=== PATIENT | male | born 1965 | race Caucasian/White ===

== ENCOUNTER 2021-03-04 10:23 | Emergency (ER) | payer SELFPAY ==
[~2021-03-04] VITALS: Ht 177.8 cm; Wt 108.9 kg
--- NOTE | 2021-03-04 10:30 | NUR ---
BIB [facility] FOR WORSENING CHRONIC BACK PAIN. RATES PAIN 5/10. IN ROOM AIR AND DENIES SOB. RESPIRATION REGULAR AND UNLABORED. WILL CONTINUE TO MONITOR THE PATIENT.
[2021-03-04 10:32] VITALS: BP 146/72
--- NOTE | 2021-03-04 11:03 | NUR ---
The patient alert and oriented x4. Denies pain. Breathing even and unlabored. Patient discharged to home in stable condition. Written and verbal after care instructions given. Patient verbalizes understanding of instruction.
== END 2021-03-04 11:01 | disposition home or self-care (01) ==
LOC: ER 10:27
DX: G89.29 Other chronic pain (principal); M54.9 Dorsalgia, unspecified; F43.10 Post-traumatic stress disorder, unspecified; Z91.018 Allergy to other foods; Z88.8 Allergy status to other drugs, medicaments and biological substances

== ENCOUNTER 2021-06-18 03:19 | Emergency (ER) | payer MEDICAID ==
[~2021-06-18] VITALS: Ht 172.7 cm; Wt 136.1 kg
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
--- NOTE | 2021-06-18 03:43 | NUR ---
URINE COLLECTED AND SENT TO LAB
--- NOTE | 2021-06-18 03:45 | NUR ---
[employer] AT PT'S BEDSIDE
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
--- NOTE | 2021-06-18 04:29 | NUR ---
[employer] AT PT'S BEDSIDE. COVID ANTIGEN SWAB COLLECTED AND SENT TO LAB
[2021-06-18 05:05] LABS: BASOPHILS % (AUTO) 0.4 % (0.0-2.0); EOSINOPHILS % (AUTO) 1.5 % (0.0-6.0); HEMATOCRIT 36 % (39-51); HEMOGLOBIN 11.8 g/dL (13.5-17.5); LYMPHOCYTES # (AUTO) 2.3 K/uL (0.8-4.8); LYMPHOCYTES % (AUTO) 27.3 % (20.0-44.0); MEAN CORPUSCULAR HGB CONC 33 g/dl (31.0-36.0); MEAN CORPUSCULAR VOLUME 82 fL (80-96); MONOCYTES # (AUTO) 0.5 K/uL (0.1-1.30); MONOCYTES % (AUTO) 5.8 % (2.0-12.0); NEUTROPHILS # (AUTO) 5.5 K/uL (1.8-8.9); PLATELET COUNT (AUTO) 308 K/uL (150-450); RED BLOOD CELL COUNT(AUTO) 4.43 MIL/uL (4.5-6.0); WHITE BLOOD COUNT (AUTO) 8.5 K/uL (4.3-11.0)
[2021-06-18 05:37] LABS: ALANINE AMINOTRANSFERASE 32 U/L (12-78); ALCOHOL, BLOOD < 3 mg/dL (0-0); ALKALINE PHOSPHATASE 74 U/L (46-116); ASPARTATE AMINOTRANSFERASE 12 U/L (15-37); BILIRUBIN,DIRECT 0.1 mg/dL (0.0-0.2); BILIRUBIN,TOTAL 0.2 mg/dL (0.2-1.0); CALCIUM, SERUM 8.6 mg/dL (8.5-10.1); CARBON DIOXIDE 31 mmol/L (21-32); CHLORIDE 99 mmol/L (98-107); CREATININE 0.8 mg/dL (0.6-1.3); GLUCOSE 323 mg/dL (74-106); POTASSIUM 4.1 mmol/L (3.5-5.1); SODIUM SERUM 135 mmol/L (136-145); TOTAL PROTEIN, SERUM 7.4 g/dL (6.4-8.2); UREA NITROGEN, BLOOD 9 mg/dL (7-18)
[2021-06-18 05:40] LABS: ACETAMINOPHEN 0 ug/ml (10-30)
[2021-06-18 06:00] LABS: BILIRUBIN,URINE NEGATIVE (NEGATIVE); COLOR,URINE YELLOW (YELLOW); LEUKOCYTE ESTERASE ,URINE NEGATIVE (NEGATIVE); NITRITE, URINE NEGATIVE (NEGATIVE); PH,URINE 5.5 (5.0-8.0); PROTEIN,URINE NEGATIVE (NEGATIVE); UGLUCOSE >=1000 mg/dL (NEGATIVE); UROBILINOGEN,URINE 0.2 EU/dL (0.2)
[2021-06-18 06:20] LABS: BACTERIA,URINE Few /HPF (None Seen); RBC,URINE 0-2 /HPF (0-2); SQUAMOUS EPITHELIAL CELL,UR Few /HPF (None Seen); WBC,URINE 0-2 /HPF (0-3)
--- NOTE | 2021-06-18 08:00 | NUR ---
BREAKFAST TRAY PROVIDED, TOLERATING PO WELL
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
[2021-06-18] MEDS ORDERED: CLOTRIMAZOLE 1% 15 GM TUBE TP SCH (08:30)
--- NOTE | 2021-06-18 10:55 | NUR ---
ACCEPTED AT [facility], FOR REPORT: [phone] [facility].
--- NOTE | 2021-06-18 11:18 | NUR ---
REPORT GIVEN TO NURSE CAT FROM [facility].
--- NOTE | 2021-06-18 11:50 | NUR ---
[facility] TRANSPORT ETA 60 MINS PER [facility]N
[2021-06-18] MEDS ORDERED: METFORMIN 500 MG TABLET PO ONE (13:30)
--- NOTE | 2021-06-18 13:42 | NUR ---
The patient refused Metformin 500 mg po despite explaining risks and benefits. Dr Lopez aware.
--- NOTE | 2021-06-18 13:42 | NUR ---
LILIYA CRUM IS MADE AWARE THAT THE PATIENT`S BLOOD SUGAR WAS 323 AND THAT THE PATIENT REFUSED TO TAKE METFORMIN AND BLOOD SUGAR CHECK. MADE NURSE CRUM AWARE THAT THE PATIENT IS GETTING DISCHARGED FROM [facility] WITH A PRESCRIPTION OF METFORMIN. Addendum: 06/18/21 at 1347 by LSARGSYAN NURSE RADAMES TAN WITH PATIENT GETTING TRANSFERED TO [facility].
[2021-06-18] MEDS ORDERED: METF-440 PO (13:43)
[2021-06-18] MEDS ORDERED: CLOT15CR27 TP (13:43)
[2021-06-18 14:21] VITALS: BP 138/69
== END 2021-06-18 14:23 ==
LOC: ER 03:22
DX: R45.851 Suicidal ideations (principal); E66.01 Morbid (severe) obesity due to excess calories; Z68.42 Body mass index [BMI] 45.0-49.9, adult; B35.6 Tinea cruris; Z91.14 Patient's other noncompliance with medication regimen; Z20.822 Contact with and (suspected) exposure to COVID-19; G89.29 Other chronic pain; M54.9 Dorsalgia, unspecified; Z88.8 Allergy status to other drugs, medicaments and biological substances; Z91.018 Allergy to other foods; R73.9 Hyperglycemia, unspecified
CPT/HCPCS: 36415; 80048; 80076; 80143; 80307; 80320; 81001; 85025; 87426; 99285; C9803; G0480

== ENCOUNTER 2023-11-08 20:12 | Emergency (ER) | payer MEDICAID, OTHER ==
[~2023-11-08] VITALS: Ht 170.2 cm; Wt 136.1 kg
[~2023-11-08 20:12] MED LIST: CLOT15CR27 TP; METF-440 PO
[2023-11-08] MEDS ORDERED: IBUP-1953 PO (23:11)
[2023-11-08] MEDS ORDERED: TYL2T PO (23:11)
[2023-11-09 00:49] VITALS: BP 153/79; TEMP 98.2; O2SAT 96
== END 2023-11-09 00:49 | disposition home or self-care (01) ==
LOC: ER 20:14
DX: S00.83XA Contusion of other part of head, initial encounter (principal); K02.9 Dental caries, unspecified; F17.200 Nicotine dependence, unspecified, uncomplicated; Z88.8 Allergy status to other drugs, medicaments and biological substances; Z91.018 Allergy to other foods; Z60.2 Problems related to living alone; Y04.0XXA Assault by unarmed brawl or fight, initial encounter; Y93.89 Activity, other specified; Y92.89 Other specified places as the place of occurrence of the external cause; Y99.8 Other external cause status
CPT/HCPCS: 70486-TC